=== PATIENT | male | born 1965 | race Caucasian/White ===

== ENCOUNTER 2019-01-21 17:39 | Emergency (ER) | payer SELFPAY ==
[2019-01-21] MEDS ORDERED: Hydrocortisone SUPP* 25 MG SUPP (2.5%) PR ONE (20:01)
[2019-01-21] MEDS ORDERED: Cephalexin CAP* 500 MG PO ONE (20:01)
--- NOTE | 2019-01-21 20:01 | ED ---
Lower Extremity - HPI Summary HPI Summary: Patient complains of chronic left hip pain radiating down the left leg times one year. Also complains of redness and swelling from left knee down to left foot with no known trauma 2 days. Complains of chronic hemorrhoids with increase in pain over the past week. Complains of pruritic rash to groin 1 week. History of blood clot at age 18. No current anti-coag. 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 - History of Current Complaint Chief Complaint: EDExtremityLower Stated Complaint: LT LEG PAIN AND SWOLLEN Time Seen by Provider: 01/21/19 19:10 Hx Obtained From: Patient Mechanism Of Injury: Unknown Onset of Pain: Days Onset/Duration: Days Severity Initially: Moderate Severity Currently: Moderate Pain Intensity: 7 Pain Scale Used: 0-10 Numeric Timing: Constant Location: Is Discrete @ Character Of Pain: Throbbing Associated Signs And Symptoms: Positive: Swelling, Redness Aggravating Factor(s): Ambulation, Weight Bearing Alleviating Factor(s): Rest Able to Bear Weight: Yes - Allergies/Home Medications Allergies/Adverse Reactions: Allergies Allergy/AdvReac Type Severity Reaction Status Date / Time No Known Allergies Allergy Verified 01/21/19 18:09 Home Medications: Home Medications Ibuprofen TAB* [Advil TAB*] 600 mg PO Q6H PRN 01/21/19 [History Confirmed ] PMH/Surg Hx/FS Hx/Imm Hx Endocrine/Hematology History: Denies: Hx Anticoagulant Therapy Cardiovascular History: Denies: Hx Pacemaker/ICD History: Denies: Hx Dialysis Sensory History: Denies: Hx Eye Prosthesis Opthamlomology History: Denies: Hx Legally Blind EENT History: Denies: Hx Deafness Neurological History: Denies: Hx Dementia Psychiatric History: Denies: Hx Autism Infectious Disease History: No Infectious Disease History: Denies: Traveled Outside the [place] in Last 30 Days - Social History Alcohol Use: None Substance Use Type: Reports: None Smoking Status (MU): Heavy Every Day Tobacco Smoker Review of Systems Constitutional: Negative Eyes: Negative ENT: Negative Cardiovascular: Negative Respiratory: Negative Gastrointestinal: Negative Genitourinary: Negative Musculoskeletal: Other Positive: Rash Neurological: Negative Psychological: Normal All Other Systems Reviewed And Are Negative: Yes Physical Exam - Summary Physical Exam Summary: Mild swelling, erythema and extra warmth to left lower extremity starting distal to the knee extending proximal to ankle. Tenderness to palpation of same area. Patient able to flex and extend knee full range of motion without pain. No pain with palpation of knee. Patient has erythematous macular rash around groin consistent with yeast infection. On rectal exam patient does have hemorrhoids present. No thrombosis noted. No bleeding noted. Physical exam otherwise unremarkable. Triage Information Reviewed: Yes Vital Signs On Initial Exam: Initial Vitals Temp Pulse Resp BP Pulse Ox 99.3 F 68 16 133/78 97 01/21/19 18:04 01/21/19 18:04 01/21/19 18:04 01/21/19 18:04 01/21/19 18:04 Vital Signs Reviewed: Yes Appearance: Positive: Well-Appearing Skin: Positive: Warm Head/Face: Positive: Normal Head/Face Inspection Eyes: Positive: Normal Neck: Positive: Supple Respiratory/Lung Sounds: Positive: Clear to Auscultation Cardiovascular: Positive: Normal Abdomen Description: Positive: Nontender Musculoskeletal: Positive: Normal Neurological: Positive: Normal Psychiatric: Positive: Normal AVPU Assessment: Alert - Muna Coma Scale Best Eye Response: 4 - Spontaneous Best Motor Response: 6 - Obeys Commands Best Verbal Response: 5 - Oriented Coma Scale Total: 15 Diagnostics - Vital Signs Vital Signs Temp Pulse Resp BP Pulse Ox 01/21/19 18:04 99.3 F 68 16 133/78 97 - Laboratory Lab Statement: Any lab studies that have been ordered have been reviewed, and results considered in the medical decision making process. Lower Extremity Course/Dx - Course Course Of Treatment: Patient complains of chronic left hip pain radiating down the left leg times one year. Also complains of redness and swelling from left knee down to left foot with no known trauma 2 days. Complains of chronic hemorrhoids with increase in pain over the past week. Complains of pruritic rash to groin 1 week. History of blood clot at age 18. No current anti-coag. 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 Physical exam:Mild swelling, erythema and extra warmth to left lower extremity starting distal to the knee extending proximal to ankle. Tenderness to palpation of same area. Patient able to flex and extend knee full range of motion without pain. No pain with palpation of knee. Patient has erythematous macular rash around groin consistent with yeast infection. On rectal exam patient does have hemorrhoids present. No thrombosis noted. No bleeding noted. Physical exam otherwise unremarkable. Vital signs within normal limits. Rx for nystatin for groin rash. Ultrasound left lower extremity negative for DVT. Possible cellulitis, trial of Keflex. Rx for Anusol suppositories for hemorrhoids. No DVT. Redness and swelling left lower extremity. No thrombosed hemorrhoids. Positive hemorrhoids. - Diagnoses Provider Diagnoses: Cellulitis, Hemorrhoids Discharge - Sign-Out/Discharge Documenting (check all that apply): Patient Departure Patient Received Moderate/Deep Sedation with Procedure: No - Discharge Plan Condition: Stable Disposition: HOME Prescriptions: Cephalexin CAP* [Keflex CAP*] 500 mg PO TID 7 Days #21 cap Hydrocortisone SUPP* [Anusol HC Supp*] 25 mg UT TID 14 Days #36 supp Patient Education Materials: Hemorrhoids (ED), Cellulitis (ED) Referrals: Margaret Hernandez MD [Primary Care Provider] - Additional Instructions: Apply cream to groin rash 3 times a day until rash is gone. Use suppositories for hemorrhoids 3 times a day for 2 weeks. Take ibuprofen 600 mg every 4 hours if needed for pain. Follow-up with primary care. Return to the ED for any new worsening symptoms. - Billing Disposition and Condition Condition: STABLE Disposition: Home
[2019-01-21] MEDS ORDERED: Nystatin CREAM* 15 GM TUBE TOPICAL ONE (20:09)
[2019-01-21] MEDS ORDERED: Ibuprofen TAB* 600 MG PO ONE (20:09)
[2019-01-21 20:45] VITALS: BP 126/74
== END 2019-01-21 20:44 | disposition home or self-care (01) ==
LOC: ED 17:39
DX: L03.116 Cellulitis of left lower limb (principal); M79.89 Other specified soft tissue disorders; K64.9 Unspecified hemorrhoids; F17.200 Nicotine dependence, unspecified, uncomplicated
CPT/HCPCS: 99282; A9270-GY